=== PATIENT | female | born 1990 | race Caucasian/White ===

== ENCOUNTER 2024-09-15 19:10 | Emergency (ER) | payer MEDICAID, SELFPAY ==
[2024-09-15 19:11] VITALS: BP 129/91; PULSE 73; RESP 16; TEMP 36.8; O2SAT 100; BMI 36.8
[2024-09-15 21:10] VITALS: BP 129/92; BP 135/78; BP 139/77; PULSE 70; PULSE 77; PULSE 82; RESP 16; O2SAT 98
[2024-09-15 21:49] LABS: Absolute Lymphocyte Count 1.43 X10^3/uL (0.83-4.51); Absolute Neutrophil Count 7.7 X10^3/uL (2.0-7.7); Basophil# 0.04 X10^3/uL; Basophil% 0.4 % (0-1); Eosinophil# 0.04 X10^3/uL; Eosinophils% 0.4 % (0-5); Hematocrit 41.2 % (37-47); Lymphocyte # 1.43 X10^3/ul (0.83-4.51); Lymphocyte % 14.7 % (19-41); Mean Corpuscular Hgb 29.5 pg (27.0-32.0); Mean Corpuscular Volume 86.7 fL (81-99); Mean Platelet Vol. 9.5 fl (6.2-12.0); Monocyte# 0.47 X10^3/uL; Monocyte% 4.8 % (0-10); NRBC Flagged by Analyzer 0 % (0-5); Neutrophil # 7.71 X10^3/uL (2.7-7.7); Neutrophil % 79.4 % (47-70); Platelet Count 262 K/mm3 (150-450); RBC Distribution Width CV 12.1 % (11.6-14.6); RBC Distribution Width SD 38.5 fl (35.1-43.9); Red Blood Count 4.75 M/mm3 (4.2-5.4); White Blood Count 9.7 K/mm3 (4.4-11.0)
[2024-09-15] MEDS: Ondansetron 4 MG/2 ML Vial IV (21:58)
[2024-09-15 22:00] VITALS: BP 139/70; PULSE 67; RESP 16; TEMP 36.6; O2SAT 100
[2024-09-15 22:02] LABS: Anion Gap 6 (5-15); BUN 12 mg/dL (7-18); BUN/Creat Ratio 17.9 RATIO (10-20); Calcium,Total 9.2 mg/dL (8.5-10.1); Chloride 111 mmol/L (98-107); Creatinine, Serum 0.67 mg/dL (0.55-1.02); EST Glomerular Filtration Rate 108 mL/min (>60); Est Glom Filt Rate - Afr Amer 131 mL/min (>60); Estimated Creatinine Clearance 141.41 ml/min; Glucose 106 mg/dL (74-106); Potassium 3.3 mmol/L (3.5-5.1); Sodium Level 140 mmol/L (136-145)
--- NOTE | 2024-09-15 22:05 | EDS_ITS ---
HPI History of Present Illness Chief Complaint: General Illness Detail of Chief Complaint: Numerous complaints from vertigo to vomiting to numbness Informant: patient Onset/Context/Timing Onset: Today Context: Sudden Onset Timing: Intermittent Quality: Vertigo, numbness anterior torso, vomiting, generalized illness Location: Multiple Current Severity: Mild Maximum Severity: Severe Worsened by: Nothing specific Relieved by: Took a nap and felt better with respect to the dizziness Associated Symptoms Associated Symptoms: Nausea and vomiting, by lateral blurred vision Narrative Narrative: Patient is a 34-year-old woman. She has history of allergies. She presents because of dizziness which she describes as a spinning sensation that was transi ent. She had blurred vision at the time but not double vision. She denied ringing or ears or decreased hearing. She felt nauseous. She went to lie down. When she got up she no longer was dizzy however she vomited. She states the emesis even came through her nose. She then complained of numbness to her face and anterior torso predominately from her chin to her epigastric area. There is also some mild numbness over the abdomen. She denied chest pain. Denies shortness of breath. She denied hematemesis. She denied coffee-ground emesis. She denied abdominal pain. She denies diarrhea. She denies urologic symptoms. She also had a sensation that she thought her blood sugar was low. She was concerned because she has a history of gestational diabetes Prior similar symptoms: Yes (Dizziness like vertigo per patient) Recent Illness/Hospitalization: No PFSH [facility] Medical History Migraines Gestational diabetes Home Medications ?Medication ?Instructions ?Recorded ?Last Taken ?Type levothyroxine 88 mcg tablet 75 mcg PO DAILY 07/17/15 08/16/17 History 75 loratadine 10 mg tablet (Allergy 10 mg PO DAILY PRN Allergies 08/17/17 08/17/17 02:00 History Relief (loratadine)) ibuprofen 600 mg tablet 600 mg PO Q6H PRN Pain ##60 08/20/17 Unknown Rx oxycodone-acetaminophen 5 mg-325 1 - 2 tab PO Q6H PRN PRN Pain #40 08/20/17 Unknown Rx mg tablet tabs Allergy/AdvReac Type Severity Reaction Status Date / Time No Known Allergies Allergy Verified 09/15/24 19:14 Social History (Updated 09/15/24 @ 22:[address] Conrado Desouza MD) household members: family and children Smoking Status: Never smoker ROS ROS ED Constitutional Constitutional ED: Denies chills, fever(s) or subjective Eyes Eyes: Reports blurry vision bilateral; Denies change in vision ENT ENT ED: Denies ear pain, rhinorrhea or sore throat Cardiovascular Cardiovascular: Denies chest pain or palpitations Respiratory/Chest Respiratory/Chest: Denies cough, dyspnea or dyspnea on exertion Gastrointestinal Gastrointestinal: Reports nausea and vomiting; Denies abdominal pain or melena Genitourinary Genitourinary ED: Denies dysuria or hematuria Musculoskeletal Musculoskeletal: Denies arthralgias, back pain or myalgias Integumentary Denies rash Neurologic Neurologic: Reports paresthesias; Denies headache(s) or weakness Hematologic/Lymphatic Hematologic/Lymphatic: Reports systems reviewed and no addt'l complaints, except as documented EXAM Physical Exam Const Vital Signs: 09/15/24 19:11 09/15/24 21:10 09/15/24 21:10 Temperature 98.3 F Temperature Source Temporal Pulse Rate 73 82 Pulse Rate [Lying] Pulse Rate [Sitting (for 1 minute prior to obtaining)] Pulse Rate [Standing (for 1 minute prior to obtaining)] Respiratory Rate 16 16 Respiratory Effort Normal Respiratory Pattern Normal Blood Pressure 129/91 H 139/77 H Blood Pressure [Lying] Blood Pressure [Sitting (for 1 minute prior to obtaining)] Blood Pressure [Standing (for 1 minute prior to obtaining)] Blood Pressure Mean 103 97 Blood Pressure Mean [Lying] Blood Pressure Mean [Sitting (for 1 minute prior to obtaining)] Blood Pressure Mean [Standing (for 1 minute prior to obtaining)] Pulse Ox 100 98 Oxygen Delivery Method Room Air Room Air 09/15/24 21:10 Temperature Temperature Source Pulse Rate Pulse Rate [Lying] 82 Pulse Rate [Sitting (for 1 minute prior to obtaining)] 77 Pulse Rate [Standing (for 1 minute prior to obtaining)] 70 Respiratory Rate Respiratory Effort Respiratory Pattern Blood Pressure Blood Pressure [Lying] 139/77 H Blood Pressure [Sitting (for 1 minute prior to obtaining)] 135/78 H Blood Pressure [Standing (for 1 minute prior to obtaining)] 129/92 H Blood Pressure Mean Blood Pressure Mean [Lying] 97 Blood Pressure Mean [Sitting (for 1 minute prior to obtaining)] 97 Blood Pressure Mean [Standing (for 1 minute prior to obtaining)] 104 Pulse Ox Oxygen Delivery Method Orthostatic vital signs were negative. Positive well nourished and well developed Constitutional Narrative: BMI is 36.8. General Appearance ED: well developed and NAD; Negative for cyanotic, diaphoretic or pallor HEENT Reports moist mucous membranes HEENT Narrative: Head is atraumatic normocephalic. Ears normal. TMs normal. Nares patent. Uvula midline. No deviation tongue or protrusion. Posterior pharynx is normal. Eyes PERRL and EOMs intact bilaterally Neck no lymphadenopathy, supple and no JVD Chest Wall inspection of chest normal and palpation of chest normal Resp normal respiratory effort and clear to auscultation bilaterally Cardio regular rate, regular rhythm, S1 normal heart sound, S2 normal heart sound and no murmurs GI normal to inspection, nondistended, normoactive bowel sounds, non-tender, non- distended and no masses; Negative for hepatosplenomegaly Back/Spine no CVA tenderness Extremity normal to inspection General Extremety ED: Negative for edema or tenderness General Extremity: Negative for edema Neuro oriented x3, CN's II-XII intact bilaterally and no sensory deficits noted Neuro Narrative: DTR at the bicep, brachialis, tricep, patella and ankle are 2+ and symmetric. There is no Babinski sign and there is no clonus at the ankles. There is no dysmetria. Romberg with eyes open and close negative. The eye askew test and hints test were both negative. Gait observed and normal. Tandem gait observed and normal. [place]-Hallpike maneuver was positive with symptoms to the left but no nystagmus was noted. Sensorium / Orientation: alert Motor Exam: strength 5/5 throughout Psych mental status grossly normal Skin no rashes or lesions noted, no wounds and skin turgor normal General Skin Exam: elasticity normal; Negative for jaundice or pallor MDM MDM MDM Narrative Medical decision making narrative: Suspect patient's dizziness/vertigo was benign paroxysmal positional vertigo since she has a normal neurologic exam. Her paresthesia may have been due to anxiety. Will obtain electrolytes to assess for hyponatremia and hypokalemia. Orthostatics were obtained because she reported lightheadedness as well. Lab Data Attestation: I reviewed the patient's lab results. Lab results narrative: CBC is normal. BMP is unremarkable. Labs: Laboratory Results - last 24 hr 09/15/24 21:31 WBC 9.7 RBC 4.75 Hgb 14.0 Hct 41.2 MCV 86.7 MCH 29.5 MCHC 34.0 RDW Std Deviation 38.5 RDW Coeff of Sondra 12.1 Plt Count 262 MPV 9.5 Immature Gran % (Auto) 0.300 Neut % (Auto) 79.4 H Lymph % (Auto) 14.7 L [place] % (Auto) 4.8 Eos % (Auto) 0.4 Baso % (Auto) 0.4 Absolute Neuts (auto) 7.7 Absolute Lymphs (auto) 1.43 Nucleated RBC % 0 Sodium 140 Potassium 3.3 L Chloride 111 H Carbon Dioxide 23.0 Anion Gap 6 BUN 12 Creatinine 0.67 Estim Creat Clear Calc 141.41 Est GFR (MDRD) Af Amer 131 Est GFR (MDRD) Non-Af 108 BUN/Creatinine Ratio 17.9 Glucose 106 Calcium 9.2 Treatment and Re-Evaluation :: Patient was informed that a believe that her dizziness was related to benign paroxysmal positional vertigo. Answered all of her questions. She thought this was due to her migraine. Discharge Plan Triage Chief Complaint: General Illness ED Provider: Conrado Desouza Dx/Rx/DC Orders Clinical Impression: Benign paroxysmal positional vertigo of left ear, Headache, migraine, Nausea & vomiting, Paresthesia, Orthostatic lightheadedness Instructions: ED BPV Vertigo, ED Vomiting (Adult) Prescriptions: No Action levothyroxine 88 MCG tablet 75 mcg PO DAILY loratadine [Allergy Relief (loratadine)] 10 MG tablet 10 mg PO DAILY PRN (Reason: Allergies) oxycodone-acetaminophen 1 TABLET tablet 1 - 2 tab PO Q6H PRN PRN (Reason: Pain) Qty: 40 0RF ibuprofen 600 MG tablet 600 mg PO Q6H PRN (Reason: Pain) Qty: 60 1RF Primary Care Provider: Cornell Joseph Referrals: Cornell Joseph MD [Primary Care Provider] - As Needed Print Language: Bengali Disposition Disposition: Home, Self Care
== END 2024-09-15 22:29 | disposition home or self-care (01) ==
PROVIDERS: Emergency Provider Emergency Medicine; PCP Internal Medicine; Visit Provider Emergency Medicine
DX: H81.12 Benign paroxysmal vertigo, left ear (principal); G43.909 Migraine, unspecified, not intractable, without status migrainosus; R20.2 Paresthesia of skin; R11.2 Nausea with vomiting, unspecified
CPT/HCPCS: 80048; 85025; 96374; 99285; A4216; J2405